=== PATIENT | female | born 1950 | race Caucasian/White ===

== ENCOUNTER → 2020-07-16 | Outpatient (REF) | payer MEDICARE ==
[2020-07-16 11:52] LABS: CALCIUM LEVEL 9.2 MG/DL (8.8-10.2); CREATININE FOR GFR 1.28 MG/DL (0.55-1.30); GLOMERULAR FILTRATION RATE 43.6 (>39); POTASSIUM SERUM 4.6 MEQ/L (3.5-5.1); THYROID STIMULATING HORMONE 0.176 uIU/ML (0.358-3.740)
== END ==
LOC: M SFHCCLAY 08:59
PROVIDERS: ATTEND Family Medicine
DX: N18.32 Chronic kidney disease, stage 3b (principal); E03.9 Hypothyroidism, unspecified
CPT/HCPCS: 80048; 84443; G0463